=== PATIENT | male | born 1950 | race Caucasian/White ===

== ENCOUNTER 2018-10-31 19:14 | Inpatient (IN) | payer SELFPAY ==
[~2018-10-31] VITALS: Ht 180.3 cm; Wt 86.6 kg
[2018-10-31 19:16] VITALS: BP 130/88
--- NOTE | 2018-10-31 20:37 | Emergency Room Report ---
History of Present Illness General Chief Complaint: Chest Pain Source: Patient, EMS Present Illness HPI 68-year-old male comes ER with complaint of having sharp left-sided chest pain radiating to the left arm [place] about an hour prior to arrival, he was given aspirin but refused nitroglycerin, reported the pain seemed to resolve on its own. He denies any exertional component, fevers, diaphoresis, nausea, syncope, hemoptysis, any other symptoms at all. He reports he has no medical problems at all, is nonsmoker, and only risk factor for ACS is father who had a heart problem in his 60s. Allergies: Coded Allergies: No Known Allergies (Unverified , 10/31/18) Patient History Past Medical History: see triage record Reviewed Nursing Documentation: PMH: Agreed; PSxH: Agreed Nursing Documentation-PMH Past Medical History: No History, Except For Review of Systems All Other Systems: negative except mentioned in HPI Physical Exam Vital Signs Date Time Temp Pulse Resp B/P (MAP) Pulse Ox O2 Delivery O2 Flow Rate FiO2 10/31/18 19:10 98.1 66 16 130/88 97 Room Air Sp02 EP Interpretation: reviewed, normal General Appearance: no apparent distress, alert, non-toxic Head: normocephalic Eyes: bilateral eye normal inspection, bilateral eye PERRL, bilateral eye EOMI ENT: normal ENT inspection, hearing grossly normal, normal pharynx, no angioedema, normal voice, moist mucus membranes Neck: normal inspection, full range of motion, supple, supple/symm/no masses Respiratory: chest non-tender, lungs clear, normal breath sounds, chest symmetrical, palpation of chest normal Cardiovascular #1: normal peripheral pulses, regular rate, rhythm Cardiovascular #2: 2+ radial (R), 2+ radial (L), 2+ dorsalis pedis (R), 2+ dorsalis pedis (L) Gastrointestinal: normal inspection, non tender, soft, no mass, no guarding, no rebound Rectal: deferred Genitourinary: normal inspection, no CVA tenderness Musculoskeletal: back normal, gait/station normal, normal range of motion, non- tender, no calf tenderness Neurologic: alert, responsive, collision mechanic III-XII nml as tested, motor strength/tone normal, sensory intact, speech normal Psychiatric: judgement/insight normal, memory normal, mood/affect normal Skin: normal color, no rash, warm/dry, normal turgor Lymphatic: no adenopathy Medical Decision Making Diagnostic Impression: Primary Impression: Chest pain of uncertain etiology ER Course Patient remains chest pain-free here, pain is atypical, was not a pressure or heaviness type pain, he was not diaphoretic, it was transient and resolved on its own without any obvious triggers, he has a normal pulse examination, normal cardiac mediastinal silhouette, normal initial labs, do not suspect ACS, dissection or PE. Upon re-evaluation, patient has mild pain still, no PMD, reports never being evaluated with stress test for CP, will admit. EKG Diagnostic Results EKG Time: 19:20 EP Interpretation: no stemi Rate: normal Rhythm: NSR ST Segments: no acute changes ASA given to the pt in ED: Yes Rhythm Strip Diag. Results Rhythm Strip Time: 20:35 EP Interpretation: yes Rate: 60 Rhythm: NSR, no PVC's, no ectopy Chest X-Ray Diagnostic Results Chest X-Ray Diagnostic Results : Chest X-Ray Ordered: Yes # of Views/Limited/Complete: 1 View Indication: Chest Pain EP Interpretation: Yes Interpretation: no consolidation, no effusion, no pneumothorax, no acute cardiopulmonary disease Impression: No acute disease Electronically Signed by: Obey Almodovar MD Last Vital Signs Date Time Temp Pulse Resp B/P (MAP) Pulse Ox O2 Delivery O2 Flow Rate FiO2 10/31/18 19:16 66 16 Room Air 10/31/18 19:16 98.1 130/88 97 Disposition: HOME, SELF-CARE Scripts No Active Prescriptions or Reported Meds OBEY ALMODOVAR M.D Oct 31, 2018 20:37
[2018-10-31 21:05] LABS: BASOPHILS % (AUTO) 0.8 % (0.0-2.0); EOSINOPHILS % (AUTO) 2.6 % (0.0-3.0); HEMATOCRIT 42.6 % (42.0-52.0); HEMOGLOBIN 14.1 G/DL (14.2-18.0); LYMPHOCYTES % (AUTO) 18.8 % (20.0-45.0); MEAN CORPUSCULAR VOLUME 89 FL (80-99); MONOCYTES % (AUTO) 4.7 % (1.0-10.0); NEUTROPHILS % (AUTO) 73.2 % (45.0-75.0); PLATELET COUNT 210 K/UL (150-450); RED CELL DISTRIBUTION WIDTH 11.3 % (11.6-14.8); WHITE BLOOD COUNT 7.9 K/UL (4.8-10.8)
[2018-10-31 21:22] LABS: ANION GAP 13 mmol/L (5-15); BLOOD UREA NITROGEN 25 mg/dL (7-18); CALCIUM 8.9 MG/DL (8.5-10.1); CARBON DIOXIDE 23 MMOL/L (21-32); CHLORIDE 103 MMOL/L (98-107); CREATININE 1.3 MG/DL (0.55-1.30); POTASSIUM 3.7 MMOL/L (3.5-5.1); SODIUM 139 MMOL/L (136-145)
[2018-10-31 21:35] LABS: ALANINE AMINOTRANSFERASE 29 U/L (12-78); ALBUMIN 3.4 G/DL (3.4-5.0); ALBUMIN/GLOBULIN RATIO 0.8 (1.0-2.7); ALKALINE PHOSPHATASE 74 U/L (46-116); ASPARTATE AMINO TRANSFERASE 23 U/L (15-37); BILIRUBIN,TOTAL 0.3 MG/DL (0.2-1.0)
[2018-10-31 23:10] VITALS: BP 131/79
[2018-10-31] MEDS ORDERED: Nitroglycerin Subl 0.4mg tab SL PRN (23:45)
[2018-11-01] MEDS: Aspirin Baby 81mg ORAL SCH ×2 (00:14→09:40)
[2018-11-01 04:00] VITALS: BP 126/66
[2018-11-01 05:33] LABS: ALANINE AMINOTRANSFERASE 23 U/L (12-78); ALBUMIN/GLOBULIN RATIO 0.7 (1.0-2.7); ALKALINE PHOSPHATASE 67 U/L (46-116); ANION GAP 8 mmol/L (5-15); ASPARTATE AMINO TRANSFERASE 21 U/L (15-37); BILIRUBIN,TOTAL 0.4 MG/DL (0.2-1.0); BLOOD UREA NITROGEN 20 mg/dL (7-18); CARBON DIOXIDE 28 MMOL/L (21-32); CHLORIDE 104 MMOL/L (98-107); CHOLESTEROL 123 MG/DL (< 200); HDL CHOLESTEROL 37 MG/DL (40-60); SODIUM 139 MMOL/L (136-145); TRIGLYCERIDES 88 MG/DL (30-150)
--- NOTE | 2018-11-01 09:40 | Diagnostic Imaging Report ---
Indication: Chest pain Technique: One view of the chest Comparison: none Findings: Inspiration is suboptimal. Lungs and pleural spaces are clear. Heart size is normal. The aorta is tortuous. The upper mediastinum is unremarkable Impression: No acute process
--- NOTE | 2018-11-01 13:37 | Diagnostic Imaging Report ---
Indication: Chest pain Technique: Resting study performed using IV administration 10.5 mCi 99m Tc Myoview. SPECT images were obtained. Stress imaging performed, per patient request Comparison: none Findings: Resting images demonstrate normal perfusion, no focal perfusion defect Impression: Limited exam, as described Negative for evidence of infarct Unable to assess for ischemia, given absence of stress imaging
--- NOTE | 2018-11-01 16:01 | Cardiology Report ---
APPROVED REPORT EKG Measurement Heart [id number] Normal sinus rhythm Normal ECG
[2018-11-01] MEDS ORDERED: Heparin 5000 units/ml inj SUBQ SCH (21:00)
--- NOTE | 2018-11-02 02:45 | History and Physical Report ---
DATE OF ADMISSION: 10/31/2018 REASON FOR ADMISSION: Chest pain. HISTORY OF PRESENT ILLNESS: This is a 68-year-old male with no prior cardiac history developed left-sided chest pain radiating to his left arm while he was [place] bus stop. He arrived to the hospital one hour later and was given oral aspirin, but refused any additional medications. He stated that the pain seemed to have resolve on its own during his emergency room stay. The patient's initial EKG revealed sinus rhythm with no abnormality and his troponin level was negative. The patient has not had any prior history of chest pain or known cardiac disease. Cardiac risk factors include family history with his father developing heart problems at age 60. MEDICATIONS: The patient takes no medications. PAST MEDICAL HISTORY: He has no other past medical history. ALLERGIES: There is no known drug allergies. SOCIAL HISTORY: Negative for smoking, alcohol, or substance abuse. REVIEW OF SYSTEMS: Unremarkable. PHYSICAL EXAMINATION: VITAL SIGNS: Afebrile, blood pressure 130/88, pulse 66, and respiratory rate 16. HEENT: Conjunctivae pink. No xanthoma. Oropharynx clear. NECK: Supple. No bruits. Jugular venous pressure normal. LUNGS: Clear. CARDIAC: Regular rhythm and rate. Normal S1 and S2 with no murmur, rub, or gallop. ABDOMEN: Soft and nontender. EXTREMITIES: No edema. NEUROLOGIC: Nonfocal. Distal pulses palpable 2+. IMPRESSION: Possible acute coronary syndrome. RECOMMENDATIONS: Admit for observation. Cardiac monitoring. Nasal oxygen. Serial troponins. Oral aspirin, beta-angel, the patient agrees. If no further signs of ischemia, provocative stress test will be useful to assess coronary flow reserve. Gage Pineda M.D. DR: MICHELLE JOB#: [id number] CC:
--- NOTE | 2018-11-03 07:42 | Discharge Summary ---
Discharge Summary Discharge Summary _ DATE OF ADMISSION: 10/31/2018 DATE OF DISCHARGE: 11/01/2018. Patient signed medical advice REASON FOR ADMISSION: 58-year old male without past medical history , presented to emergency department for evaluation of chest pain . Patient developed left-sided chest pain radiating down his left arm while waiting for the bust at the bus stop. Patient came to the hospital for evaluation about one hour after the episode. In ED he was given Aspirin, but he refused nitroglycerin. Patient reported that pain seemed to resolve . Upon evaluation laboratory workup was unremarkable. Troponin was negative. EKG reveals sinus rhythm, no acute ischemic changes. CXR revealed no acute cardiopulmonary pathology. Patient had no prior history of chest pain or known cardiac disease , however cardiac risk factor included family /father heart problems at age of 60. Patient admitted with diagnosis of chest pain possible acute coronary Patient was admitted with chest pain, possible acute coronary syndrome. HOSPITAL COURSE: Patient admitted to [facility]. Patient was on library monitor. Patient started on aspirin and beta-angel. Nitroglycerin was on board as needed. No further chest pain. Repeated troponin was negative. No evidence of ischemia on EKG Lipid panel was stable. Supplemental oxygen provided as needed to keep oxygen above 92%. Pulse oximetry was stable on room air. Stress test was planned to access coronary flow reserve. DVT prophylaxis provided. Patient felt better, denied chest pain , and decided to leave AGAINST MEDICAL ADVICE. Patient met with the adoption social worker, however still wanted to leave AGAINST MEDICAL ADVICE. The risks and consequences of signing AGAINST MEDICAL ADVICE were discussed with patient in detail. Patient verbalized understanding, nevertheless signed AMA form and left. FINAL DIAGNOSES: Chest pain of unknown etiology Possible acute coronary syndrome I have been assigned to dictate discharge summary for this account. I was not involved in the patient's management. Arminda Serrano NP Nov 03, 2018 07:42
== END 2018-11-01 11:20 | disposition left against medical advice (07) | DRG 311 ==
LOC: EDBD 19:14 → EMR 19:52 → 2W 21:11 → EDBEDREQ 21:59
DX: I24.9 Acute ischemic heart disease, unspecified (principal)
CPT/HCPCS: 36415; 71045; 78451; 80053; 80061; 83880; 84443; 84484; 85025; 85610; 85730; 87081; 93005; 96372; 99285